=== PATIENT | female | born 1980 | race Caucasian/White ===

== ENCOUNTER → 2018-01-09 | Outpatient (CLI) | payer BC ==
[2018-01-09 14:42] LABS: ADD MAN DIFF? NO
[2018-01-09 14:45] LABS: BASO # 0.2 x10^3/uL (0.0-0.2); BASO % 1 % (0-3); EOS # 0.4 x10^3/uL (0.0-0.7); EOS % 3 % (0-3); HEMATOCRIT 39.1 % (36.0-47.0); HEMOGLOBIN 13.4 g/dL (12.0-15.5); LYMPH # 3.3 x10^3/uL (1.0-4.8); LYMPH % 27 % (24-48); MEAN CORPUSCULAR HEMOGLOBIN 31 pg (25-35); MEAN CORPUSCULAR HGB CONC 34 g/dL (31-37); MEAN CORPUSCULAR VOLUME 91 fL (79-100); MONO # 0.8 x10^3/uL (0.0-1.1); MONO % 6 % (0-9); NEUT # 7.8 x10^3uL (1.8-7.7); NEUT % 63 % (31-73); PLATELET COUNT 323 x10^3/uL (140-400); RED BLOOD COUNT 4.28 x10^6/uL (3.50-5.40); WHITE BLOOD COUNT 12.5 x10^3/uL (4.0-11.0)
[2018-01-09 15:02] LABS: ALBUMIN 3.5 g/dL (3.4-5.0); ANION GAP 9 (6-14); BLOOD UREA NITROGEN 9 mg/dL (7-20); CALCIUM 8.8 mg/dL (8.5-10.1); CARBON DIOXIDE 25 mmol/L (21-32); CHLORIDE 103 mmol/L (98-107); CREATININE 0.7 mg/dL (0.6-1.0); GFR 93.6; GLUCOSE 88 mg/dL (70-99); POTASSIUM 3.9 mmol/L (3.5-5.1); SODIUM 137 mmol/L (136-145); TOTAL BILIRUBIN 0.3 mg/dL (0.2-1.0)
== END | disposition home or self-care (01) ==
LOC: SURGPAT 13:33
DX: Z01.818 Encounter for other preprocedural examination (principal); K82.8 Other specified diseases of gallbladder
CPT/HCPCS: 36415; 80048; 82040; 82247; 85025

== ENCOUNTER → 2018-01-16 | Day surgery (SDC) | payer BC ==
[~2018-01-16] MED LIST: DEXAMETHASONE SOD PHOS 20 MG/5 ML VIAL.; GLUCAGON,HUMAN RECOMBINANT 1 MG/ML VIAL.; GLYCOPYRROLATE 1 MG/5 ML VIAL.; IV RINGERS,LACTATED 1000ML 1,000 ML IV; KETOROLAC 30 MG/ML INJ FOR OR. INJ; LIDOCAINE 1% PF 2 ML VIAL. ID; LIDOCAINE 2% PF Vial for OR 5 ML VIAL.; MORPHINE SULFATE 2 MG/ML DISP.SYRIN. IV; NEOSTIGMINE METHYLSULFATE 5 MG/5 ML SYRINGE.; ONDANSETRON PF 4 MG/2 ML VIAL.; ONDANSETRON PF 4 MG/2 ML VIAL. IV; PROCHLORPERAZINE 10 MG/2 ML VIAL. IV; PROPOFOL 20 ML IV; ROCURONIUM 50 MG/5 ML VIAL.; SEVOFLURANE 61 TO 120 MINUTES. IH; SURGICEL HEMOSTAT 4X8 EACH.; ceFAZolin 2GM PREMIX 2 GM/50 ML BAG IV; fentaNYL PF VIAL 100 MCG/2 ML VIAL IV; fentaNYL PF VIAL 250 MCG/5 ML VIAL
[2018-01-16] MEDS: IV RINGERS,LACTATED 1000ML 1,000 ML IV (10:13)
[2018-01-16 10:21] LABS: NEG OBC UR NEG; POS OBC UR POS; U PREG PATIENT NEGATIVE (NEG)
[2018-01-16] MEDS: BUPIVACAINE-EPI 0.5%-1:200000 50 ML VIAL. (11:32)
[2018-01-16] MEDS: IOHEXOL 300 MG/ML 100ML VIAL. (11:51)
[2018-01-16] MEDS: oxyCODONE/APAP 5/325 1 TAB TABLET PO (12:34)
== END | disposition home or self-care (01) ==
LOC: SURG 09:20
DX: K82.8 Other specified diseases of gallbladder (principal); E03.9 Hypothyroidism, unspecified; K21.9 Gastro-esophageal reflux disease without esophagitis; E55.9 Vitamin D deficiency, unspecified; Z98.51 Tubal ligation status; Z98.890 Other specified postprocedural states; F17.210 Nicotine dependence, cigarettes, uncomplicated; E66.9 Obesity, unspecified; Z68.41 Body mass index [BMI] 40.0-44.9, adult; Z72.89 Other problems related to lifestyle; Z79.899 Other long term (current) drug therapy
CPT/HCPCS: 47562; 81025; A7015; J0690; J1100; J1610; J1885; J2001; J2405; J2704; J2710; J3010; J3490; J7030; J7120; Q9967

== ENCOUNTER 2021-01-08 09:47 | Emergency (ER) | payer BC ==
[2018-01-16 14:20] VITALS: BP 139/81
[~2021-01-08 09:47] MED LIST changes: +CHOL100013 PO; -DEXAMETHASONE SOD PHOS 20 MG/5 ML VIAL.; +DOCU50CA9 PO; -GLUCAGON,HUMAN RECOMBINANT 1 MG/ML VIAL.; -GLYCOPYRROLATE 1 MG/5 ML VIAL.; -IV RINGERS,LACTATED 1000ML 1,000 ML IV; -KETOROLAC 30 MG/ML INJ FOR OR. INJ; +LEVO112T49 PO; -LIDOCAINE 1% PF 2 ML VIAL. ID; -LIDOCAINE 2% PF Vial for OR 5 ML VIAL.; -MORPHINE SULFATE 2 MG/ML DISP.SYRIN. IV; -NEOSTIGMINE METHYLSULFATE 5 MG/5 ML SYRINGE.; -ONDANSETRON PF 4 MG/2 ML VIAL.; -ONDANSETRON PF 4 MG/2 ML VIAL. IV; +OXYC1TAB15 PO; -PROCHLORPERAZINE 10 MG/2 ML VIAL. IV; -PROPOFOL 20 ML IV; -ROCURONIUM 50 MG/5 ML VIAL.; -SEVOFLURANE 61 TO 120 MINUTES. IH; -SURGICEL HEMOSTAT 4X8 EACH.; -ceFAZolin 2GM PREMIX 2 GM/50 ML BAG IV; -fentaNYL PF VIAL 100 MCG/2 ML VIAL IV; -fentaNYL PF VIAL 250 MCG/5 ML VIAL
== END 2021-01-08 10:00 | disposition left against medical advice (07) ==
LOC: ER 09:47
DX: I10 Essential (primary) hypertension (principal); Z53.21 Procedure and treatment not carried out due to patient leaving prior to being seen by health care provider